=== PATIENT | female | born 1950 | race Caucasian/White ===

== ENCOUNTER 2018-02-16 16:36 | Observation (INO) | payer MEDICARE, OTHER ==
[2018-02-16] MEDS ORDERED: Ondansetron PF 4 MG/2 ML Vial ONE (18:59)
[2018-02-16] MEDS ORDERED: Morphine 4 MG/ML VIAL ONE (18:59)
[2018-02-16 19:40] VITALS: BMI 20.5
[2018-02-16 19:55] LABS: INR-International Normal Ratio 1.2; PTT 40.7 SEC (22.9-36.1); Prothrombin Time 14.9 SEC (12.0-14.7)
[2018-02-16 19:57] LABS: Hemoglobin 8.5 g/dL (12.0-16.0)
[2018-02-16] MEDS: D5 1/2 NS w/20 mEq KCL 1,000 ML IV SCH (20:06)
[2018-02-16] MEDS: Nicotine 21 MG PATCH TD SCH (21:06)
[2018-02-16] MEDS: Famotidine/PF 20 mg/2ml Vial SLOW IVP SCH (21:06)
--- NOTE | 2018-02-17 00:26 | HP ---
CHIEF COMPLAINT: Abdominal pain. HISTORY OF PRESENT ILLNESS: Ms. Harvey is a 67-year-old woman who underwent a colonoscopy on Friday at another facility. She states that immediately after her colonoscopy, she experienced abdominal pa in, which was across the upper abdomen at first it was worse in the left upper quadrant, but then it went down into the lower abdomen and is now diffuse. She was told that it was likely due to her poly pectomy or gas, but it did not improve. She thought she might be a little constipated and she took s ome laxatives and had some liquid bowel movements, but that did not improve the pain either. She con tinued to experience abdominal bloating and pain, so she went to her local emergency room and was fou nd to have a subcapsular hematoma as well as hemoperitoneum. She was transferred to [place] for formerly [facility] care. She was told in the other ER that she had a ruptured colon, but there is no evidence of this on the CT scan on review of the images with our radiologist nor did the outside radiologist's n ote any such problem. She has not had any fevers, chills, nausea, or vomiting. She had some diarrhe al stools after taking the laxatives, but no problems since then. She states that on Friday, she w as a little lightheaded and dizzy, but that since then she has not had any problems with lightheadedn ess. She denies any chest pain or shortness of breath and has been eating and drinking normally. PAST MEDICAL HISTORY: Emphysema, ongoing tobacco abuse, arthritis, hyperlipidemia, hypothyroidism. Her medical history list from the other facility list coronary artery disease, but the patient denies that. She states that she did have a stress test recently, but has not received the results yet and has never had any heart problems that she knows of, although it runs in her family. PAST SURGICAL HISTORY: Appendectomy, breast implants, foot surgery, and hip replacement on the right . FAMILY HISTORY: Diabetes, heart disease, hypertension, and hyperlipidemia. SOCIAL HISTORY: She smokes a pack and a half a day, drinks occasionally, but not to excess and does not use any illicit drugs. OUTPATIENT MEDICATIONS: Include low-dose aspirin 81 mg p.o. daily, Aleve p.r.n., atorvastatin 40 mg p.o. daily, calcium plus vitamin D daily, garlic tablets, Synthroid 50 mcg daily, vitamin B complex d aily, vitamin C daily, and clobetasol 0.05% topical cream. She carries an EPIPEN due to an allergy t o red wasp, but denies any other medication allergies. ALLERGIES: She does have adverse drug reactions to HYDROCODONE, which makes her itch and to tramadol , which upsets her stomach. Her allergy list from the outside hospital also mentions also SULFA DRUG S, but she did not report that to me. REVIEW OF SYSTEMS: Ten-system review of systems is negative except per HPI. PHYSICAL EXAMINATION: VITAL SIGNS: Patient is afebrile with normal vital signs. She is not tachycardic. Her blood pressu res in the low normal range. She is not tachypneic and O2 saturations are normal. GENERAL: Reveals a thin woman in no acute distress. She is not flushed or toxic. She is not pale. She is not jaundiced or icteric. HEENT: Unremarkable. NECK: Supple without lymphadenopathy or thyroid nodules. HEART: Regular in its rate and rhythm without murmurs, rubs or gallops. LUNGS: Clear to auscultation bilaterally. I do not appreciate any wheezes or crackles. ABDOMEN: Soft, slightly distended, and diffusely tender to palpation without rigidity, rebound, or g uarding. No palpable masses or hernias. EXTREMITIES: Warm and well perfused with no edema. NEUROLOGIC: No focal deficits. PSYCHIATRIC: Alert, oriented, and appropriate. LABORATORY DATA: From the outside ER showed normal white count of 9.4, hemoglobin of 9.4, hematocrit is 27.4, platelets of 239. Sodium was slightly low at 132 and potassium was slightly low at 3.2, bi carbonate was normal. BUN 15 and creatinine was 1.2. Bilirubin is normal as are LFTs and lipase and lactate. CT images are reviewed with our radiologist and he is in agreement with the patient's writ ten report. She has a large subcapsular hematoma with hemoperitoneum mostly in the pelvis. The roula l looks normal and there is no free air. She does have a mildly thickened gallbladder wall with few stones in the gallbladder and atherosclerosis of the aorta and multiple branches and the coronary art eries. She also notes that she has a slightly atrophic left kidney. ASSESSMENT: Splenic bleed presumably due to recent colonoscopy. Patient was symptomatic. On Saturd ay in terms of lightheadedness, but has not had any hemodynamic instability or any lightheadedness si nce that time. I suspect that she bled a fair amount shortly after the procedure, but there is no ev idence of ongoing bleeding on the CT, there is no blush or extravasation seen and she seems to equili brated. We will admit her for observation and keep her on a clear liquid diet and follow serial sharon tocrits. We will hold her aspirin for now and check her coags and sent a type and screen.
[2018-02-17 01:50] LABS: Hemoglobin 7.8 g/dL (12.0-16.0)
[2018-02-17 02:13] LABS: Anion Gap 8 mmol/L (10-20); BUN (Urea Nitrogen) 12 mg/dL (9.8-20.1); Calc. Creatinine Clearance 55 mL/min (70-130); Calcium 8.4 mg/dL (7.8-10.44); Carbon Dioxide 28 mmol/L (23-31); Chloride 104 mmol/L (98-107); Estimated GFR-MDRD 68; Glucose 114 mg/dL (80-115); Potassium 3.9 mmol/L (3.5-5.1); Sodium 136 mmol/L (136-145)
[2018-02-17] MEDS ORDERED: Morphine 4 MG/ML VIAL SLOW IVP PRN ×2 (02:29→18:49)
[2018-02-17] MEDS ORDERED: Morphine 2 MG/ML SYRINGE SLOW IVP PRN (02:29)
[2018-02-17] MEDS: D5 1/2 NS w/20 mEq KCL 1,000 ML IV SCH ×2 (04:01→13:11)
[2018-02-17 05:11] LABS: #Basophils 0.1 thou/uL (0.0-0.2); #Eosinphils 0.2 thou/uL (0.0-0.7); #Lymphocytes 0.9 thou/uL (1.20-3.40); #Monocytes 0.7 thou/uL (0.11-0.59); %Basophils 0.8 % (0.0-1.0); %Eosinophils 3.4 % (0.0-10.0); %Lymphocytes 13.7 % (21.0-51.0); %Monocytes 9.6 % (0.0-10.0); %Neutrophils 72.5 % (42.0-75.0); Hemoglobin 7.7 g/dL (12.0-16.0); Mean Corpuscular HGB CONC 33.2 g/dL (32.0-36.0); Mean Corpuscular Hemoglobin 33.3 pg (27.0-31.0); Mean Platelet Volume 7.6 fL (7.4-10.4); Platelet Count 214 thou/uL (130-400); Red Blood Cell (RBC) Count 2.31 mill/uL (4.20-5.40); White Blood Cell (WBC) Count 6.9 thou/uL (4.8-10.8)
[2018-02-17] MEDS: HYDROcodone/Acetaminophen 5/325 mg Tablet PO PRN ×3 (06:16→23:11)
[2018-02-17 07:26] LABS: Hemoglobin 8.1 g/dL (12.0-16.0)
[2018-02-17] MEDS: Famotidine/PF 20 mg/2ml Vial SLOW IVP SCH ×2 (08:54→21:09)
[2018-02-17] MEDS: Nicotine 21 MG PATCH TD SCH (08:55)
--- NOTE | 2018-02-17 19:15 | PRG ---
DATE OF SERVICE: 02/17/2018 HISTORY OF PRESENT ILLNESS: Ms. Harvey is a 67-year-old woman, patient is day #4 status post colonos copy. She has been having abdominal pain since the colonoscopy. She was evaluated in the emergency department yesterday due to intractable pain. A CT scan of the ab domen and pelvis was obtained which revealed a large subcapsular splenic hemorrhage. Overnight, her pain is improving when she is not moving. When she coughs; however, her pain and intensified to 9/10. Baseline is 2/10. She denies any nausea , vomiting. OBJECTIVE: VITAL SIGNS: This morning includes blood pressure 132/60, pulse 70, respiratory rate is 16, temperat ure is 98 degrees Fahrenheit, oxygen saturation 96% on room air. HEENT: Reveals normocephalic and atraumatic. Pupils are equal, round, and reactive to light and acc ommodation. HEART: Reveals regular rate and rhythm, no murmurs or gallops auscultated. CHEST: Lungs are clear to auscultation bilaterally. Breathing is regular and unlabored. ABDOMEN: Soft and nondistended. She has mild tenderness to palpation, worse in the left upper quadr ant. She has no peritoneal signs on examination. EXTREMITIES: Reveals 2+ radial and pedal pulses bilaterally. No ankle edema is present. NEUROLOGIC: Reveals no focal deficits present. LABORATORY DATA: Today includes a CBC with 6900 white blood cells, hemoglobin and hematocrit 7.7 and 23.2 respectively. Platelet count is 214,000. Metabolic profile: Sodium 136, potassium 3.9, chlor ingrid is 104, bicarb is 28, BUN 12, creatinine 0.83, glucose is 114. I have personally reviewed the accompanying CT scan of the abdomen and pelvis, which I reviewed with the patient. This indeed shows a very large subcapsular splenic hematoma. There is minimal free flu id in the peritoneal cavity. IMPRESSION: 1. Post-procedure day #4 status post colonoscopy. 2. Acute subcapsular splenic hematoma. 3. Acute blood loss anemia secondary to #1. PLAN: We will increase activity which will consist of ambulation on flat surface at this time. We w ill also advance diet. We will continue to trend hemoglobin using this as marker of hemostasis. Both findings and plan discussed with the patient who indicates understanding of information given. I answered her questions.
[2018-02-18] MEDS: HYDROcodone/Acetaminophen 5/325 mg Tablet PO PRN ×2 (03:57→10:19)
[2018-02-18 04:20] LABS: Hemoglobin 9.1 g/dL (12.0-16.0)
[2018-02-18 08:11] VITALS: BP 123/57; TEMP 97.9
[2018-02-18] MEDS ORDERED: Senokot 8.6 MG TAB PO SCH (09:00)
[2018-02-18] MEDS ORDERED: Ascorbic Acid 500 mg Chewable Tablet PO SCH (09:00)
[2018-02-18] MEDS ORDERED: Ferrous Sulfate 325 MG TAB PO SCH (09:00)
[2018-02-18] MEDS ORDERED: Polyethylene Glycol 3350 17 GM Packet PO SCH (09:00)
[2018-02-18] MEDS: Famotidine/PF 20 mg/2ml Vial SLOW IVP SCH (10:21)
[2018-02-18] MEDS: Nicotine 21 MG PATCH TD SCH ×2 (10:22→10:27)
--- NOTE | 2018-02-18 12:25 | DIS ---
DATE OF ADMISSION: 02/16/2018 DATE OF DISCHARGE: 02/18/2018 ADMITTING PHYSICIAN: Mike Morse M.D. DISCHARGING PHYSICIAN: Gus Fernández DO. ADMITTING DIAGNOSES: 1. Post-colonoscopy large perisplenic hematoma. 2. Acute blood loss anemia. DIAGNOSES ON DISCHARGE: 1. Post-colonoscopy large perisplenic hematoma. 2. Acute blood loss anemia. HISTORY AND HOSPITAL COURSE: A 67-year-old woman who is 5 days status post colonoscopy. The patient developed abdominal pain, was seen in the emergency department with CT scan of abdomen and pelvis wh ich revealed a large subcapsular splenic hematoma. Laboratory studies also were consistent with acute blood loss anemia. The patient was placed on roula l rest for 24 hours and then diet was initiated. Serial laboratory studies as revealed a stable bloo d loss anemia. Today, the patient is evaluated. She is ambulating with minimum difficulty. She denies any abdomina l pain. She is tolerating a general diet, having normal bowel and urinary function. The patient has remained hemodynamically stable and afebrile through this hospitalization. PHYSICAL EXAMINATION: VITAL SIGNS: Today includes blood pressure 123/57, pulse 70, respiratory rate is 20, temperature 97. 9 degrees Fahrenheit, oxygen saturation 93% on room air. HEART: Reveals regular rate and rhythm, no murmurs or gallops auscultated. ABDOMEN: Soft, nontender, nondistended. LABORATORY: Hemoglobin and hematocrit this morning 9.1 and 27.6 respectively. The patient has maximized hospital benefit and will be discharged home with the following instruction s: 1. She is instructed to avoid heavy weight lifting or any activity that may predispose her to fall. She is encouraged to ambulate daily to avoid complications of venous thromboembolism. 2. She is instructed to return to the emergency department with any onset of palpitation, profound f atigue, return of abdominal pain or any intolerance to oral intake all might be an indication of a sp ontaneous splenic hemorrhage. 3. The patient is to avoid all anticoagulants including nonsteroidal anti-inflammatory agents or asp irin until she has been released by us. 4. She is to resume all other medications as prescribed by her primary care physician. 5. She is to continue with iron replacement and vitamin C until blood count is normalized. 6. She is to follow up with myself or her primary care physician in 2 weeks with a repeat CBC. 7. She is given a prescription for hydrocodone 5/325, #30 to be taken 1-2 p.o. q.6 hours p.r.n. pain . Above instructions was explained to the patient who indicates understanding of the information given. I answered her questions.
== END 2018-02-18 10:28 | disposition home or self-care (01) ==
LOC: ERS 16:36 → 2SW 19:12
PROVIDERS: ADMIT Surgery; ATTEND Surgery
DX: K91.870 Postprocedural hematoma of a digestive system organ or structure following a digestive system procedure (principal); D62 Acute posthemorrhagic anemia; E03.9 Hypothyroidism, unspecified; E78.5 Hyperlipidemia, unspecified; I25.10 Atherosclerotic heart disease of native coronary artery without angina pectoris; F17.200 Nicotine dependence, unspecified, uncomplicated; Z79.82 Long term (current) use of aspirin; Z79.899 Other long term (current) drug therapy; Z88.2 Allergy status to sulfonamides; Z88.5 Allergy status to narcotic agent; Z88.8 Allergy status to other drugs, medicaments and biological substances
CPT/HCPCS: 80048; 85014 ×3; 85018 ×3; 85025; 85610; 85730; 86850; 86900; 86901; 96361 ×2; 96374; 96375 ×2; 96376; 97139; 99285; G0378 ×2; 36415; J2270; J2405; S0028

== ENCOUNTER 2022-08-13 10:09 | Outpatient (CLI) | payer MEDICARE, OTHER ==
[2022-08-13] MEDS ORDERED: Magnevist 469MG/ML 20 ML VIAL ONE (10:22)
== END 2022-08-13 10:10 | disposition home or self-care (01) ==
LOC: MRI 10:09
PROVIDERS: ATTEND Nurse Practitioner Family
DX: G93.9 Disorder of brain, unspecified (principal); I67.82 Cerebral ischemia; R90.82 White matter disease, unspecified; Q89.8 Other specified congenital malformations; R93.89 Abnormal findings on diagnostic imaging of other specified body structures
CPT/HCPCS: 70553; 82565; A9579

== ENCOUNTER 2022-12-05 12:25 | Outpatient (CLI) | payer MEDICARE, OTHER | END 2022-12-05 12:26 | disposition home or self-care (01) | LOC: EEG 12:25 | PROVIDERS: ATTEND Psychiatry & Neurology Neurology | DX: G93.89 Other specified disorders of brain (principal) | CPT/HCPCS: 95816; 95957 ==